=== PATIENT | female | born 1970 | race Caucasian/White ===

== ENCOUNTER 2016-03-27 18:29 | Emergency (ER) | payer MEDICAID ==
[~2016-03-27] VITALS: Ht 157.5 cm; Wt 42.7 kg
[~2016-03-27 18:29] MED LIST: ADVA250A INH; ALBUAER3 INH; CLON0.5T PO; FLUO40CA PO; LOSA50TA PO; SIMV10TA PO; TRAM-492 PO
[2016-03-27 18:47] VITALS: BP 146/80; PULSE 66; RESP 18; TEMP 98.5; O2SAT 99
[2016-03-27] MEDS ORDERED: FLUO40CA PO (21:35)
--- NOTE | 2016-03-27 21:37 | PD ---
HPI Chief Complaint: Musculoskeletal Complaint Time Seen by Provider: 21:37 Travel History International Travel<30 days: No Contact w/Intl Traveler<30days: No Traveled to known affect area: No History of Present Illness HPI 45-year-old female with a history of hypertension, hyperlipidemia, chronic low back pain presents to the emergency department for evaluation of left wrist injury that occurred 2 and a half weeks ago. The patient states that on she was drinking alcohol and tried to climb out of bed, getting tangled in the sheets and fell onto the ground with her left wrist bent underneath her. States she had swelling, bruising and pain in this wrist for the past 2-1/2 weeks. States that she thought it would get better but it has not improved. States that she has been taking tramadol which she has prescribed for her back pain but it has not improved her symptoms. Denies any previous injury or trauma to this wrist. Denies numbness or tingling. States she does have weakness in the wrist, is unable to router machine operator things well. No other complaints. PFSH Past Medical History Arthritis: Yes Asthma: No Autoimmune Disease: No Heart Rhythm Problems: No Cardiovascular Problems: No High Cholesterol: No Chest Pain: No Congestive Heart Failure: No COPD: No Cerebrovascular Accident: No Diabetes: No Diminished Hearing: No Gastrointestinal Disorders: No GERD: No Glaucoma: No Headaches: Yes Hepatitis: No Hiatal Hernia: No Hypertension: Yes Kidney Stones: No Musculoskeletal: Yes (LOW BACK , LEG AND NECK PAIN) Neurologic: No Reproductive: No Respiratory: No Myocardial Infarction: No Renal Failure: No Seizures: No Sleep Apnea: No Thyroid Disease: No Ulcer: No Influenza Vaccination: No ?: Not Menopausal: Yes Past Surgical History Abdominal Surgery: No AICD: No Cardiac Surgery: No Ear Surgery: No Endocrine Surgery: No Eye Surgery: No Genitourinary Surgery: No Gynecologic Surgery: No Hysterectomy: Yes Neurologic Surgery: Yes (headaches) Pacemaker: No Thoracic Surgery: No Social History Alcohol Use: Yes Tobacco Use: Yes (I PPD) Substance Use: No Allergies-Medications (Allergen,Severity, Reaction): Coded Allergies: No Known Allergies (Verified , 03/27/16) Reported Meds & Prescriptions Reported Meds & Active Scripts Active Lortab (Hydrocodone-Acetaminophen) 5-325 Mg Tab 1 Tab PO Q6H PRN Tramadol Hydrochloride (Tramadol HCl) 50 Mg Tab 50 Tab PO Q6HR Advair Diskus Inh (Fluticasone-Salmeterol Inh) 250-50 Mcg/Blist Aer 1 Puff INH BID Rinse mouth after use. Proair Hfa 8.5 GM Inh (Albuterol Sulfate) 90 Mcg/Act Aer 2 Puff INH Q4HR PRN 108 mcg/actuation Simvastatin 10 Mg Tab 10 Mg PO HS Losartan (Losartan Potassium) 50 Mg Tab 50 Mg PO DAILY Reported Fluoxetine (Fluoxetine HCl) 40 Mg Cap 80 Cap PO DAILY Review of Systems Except as stated in HPI: all other systems reviewed are Neg Physical Exam Narrative GENERAL: Well-nourished and well-developed pleasant patient in no acute distress who is nontoxic appearing. SKIN: Warm and dry. HEAD: Normocephalic and atraumatic. EYES: No injection, drainage, or hyphema noted. PERRLA. EOMI. ENT: No nasal drainage noted. Oropharynx is clear. NECK: Supple and the trachea is midline. CARDIOVASCULAR: Regular rate and rhythm. RESPIRATORY: Breath sounds are equal bilaterally with no accessory muscle use, wheezing, rhonchi, or crackles. MUSCULOSKELETAL: There is swelling and tenderness of the left wrist, she has limited range of motion in the wrist but is able to move it. Bulb Grader strength 5/ 5. Radial pulses 2+ bilaterally. No obvious deformities, swelling, cyanosis, or ecchymosis is present throughout the upper and lower extremities. NEUROLOGICAL: Awake, alert, and oriented. Normal speech and gait. Cranial nerves are grossly intact. Data Data Last Documented VS Vital Signs Date Time Temp Pulse Resp B/P Pulse Ox O2 Delivery O2 Flow Rate FiO2 03/27/16 18:47 98.5 66 18 146/80 99 Orders Wrist, Complete ([id number]) (03/27/16 21:36) Acetamin-Hydrocod 325-5 Mg (Blain 5-325 (03/27/16 22:00) Splint Or Brace Apply/Monitor (03/27/16 22:20) MDM Medical Decision Making Medical Screen Exam Complete: Yes Emergency Medical Condition: Yes Differential Diagnosis Fracture versus contusion versus sprain Narrative Course 45-year-old female presents to the emergency department 2-1/2 weeks status post injury of her left wrist. Patient is afebrile, vital signs are stable. Patient 's left upper extremity is neurovascularly intact. X-ray imaging has been ordered and is pending. X-ray of the left wrist shows an impacted distal radius fracture. This is subacute as it occurred 2-1/2 weeks ago. Patient is placed in a sugar tong splint. Instructed to follow-up with an orthopedist. Patient verbalizes understanding and agreement with treatment plan. Diagnosis Primary Impression: Left wrist fracture Qualified Code: S62.102A - Left wrist fracture, closed, initial encounter Referrals: Orthopedist Patient Instructions: General Instructions, Wrist Fracture in Adults (ED) Additional Instructions: Splint. Do not take Lortab with alcohol or while driving. Stop Tramadol. Follow-up with an orthopedic surgeon. Return to the ED for any acute worsening of symptoms. Med/Other Pt SpecificInfo: Prescription(s) given Scripts Hydrocodone-Acetaminophen (Lortab)5-325 Mg Tab1 Tab PO Q6H PRN (PAIN GREATER THAN 6) #20 TAB Ref 0 Prov:Hal Soto MD 03/27/16 Disposition: 01 DISCHARGE HOME Condition: Stable Jammie Chandler Mar 27, 2016 21:37
[2016-03-27] MEDS ORDERED: ACETAMINOPHEN/HYDROcodone 325 MG/5 MG TAB PO ONE (22:00)
--- NOTE | 2016-03-27 22:30 | RADHPO ---
EXAM DATE/TIME: 03/27/2016 21:59 [facility] COMPARISON: No previous studies available for comparison. INDICATIONS : Left wrist pain from fall two weeks ago. MEDICAL HISTORY : Arthritis. SURGICAL HISTORY : None. ENCOUNTER: Initial ACUITY: 2 weeks PAIN SCORE: 9/10 LOCATION: Left medial wrist. FINDINGS: There is a minimally impacted fracture of the distal radius. Carpus is intact. CONCLUSION: Impacted fracture distal radius. Ismael Gamboa MD FACR on March 27, 2016 at 22:26 Board Certified Radiologist. This report was verified electronically.
[2016-03-27] MEDS ORDERED: HYDR-3533 PO (22:37)
[2016-04-05] MEDS ORDERED: HYDR-4107 PO (16:32)
[2016-06-21] MEDS ORDERED: CLON0.5T PO (10:44)
[2016-07-20] MEDS ORDERED: FLUO40CA PO (10:13)
[2016-07-23] MEDS ORDERED: MOBI7.5T PO (09:42)
[2016-07-24] MEDS ORDERED: TRAM-492 PO (15:29)
[2016-08-27] MEDS ORDERED: FLUO40CA PO (13:14)
[2016-08-27] MEDS ORDERED: CLON0.5T PO (14:07)
[2016-08-28] MEDS ORDERED: ROPI0.5T PO (10:24)
== END 2016-03-27 23:00 | disposition home or self-care (01) ==
LOC: PHED 18:29 → PHEFT 23:00
DX: S52.502A Unspecified fracture of the lower end of left radius, initial encounter for closed fracture (principal); F17.210 Nicotine dependence, cigarettes, uncomplicated; F10.10 Alcohol abuse, uncomplicated; W06.XXXA Fall from bed, initial encounter; Y93.89 Activity, other specified; Y99.9 Unspecified external cause status; I10 Essential (primary) hypertension; M19.90 Unspecified osteoarthritis, unspecified site
CPT/HCPCS: 29125; 73110